=== PATIENT | female | born 1940 | race Caucasian/White ===

== ENCOUNTER → 2017-09-16 | Day surgery (SDC) | payer OTHER ==
--- NOTE | 2017-09-13 12:28 | Diagnostic Imaging Report ---
PROCEDURE: Frontal and lateral views of the chest. COMPARISON: Chest 2 views 10/21/2015. INDICATIONS: PREOPERATIVE CHEST XRAY FOR RIGHT HAND SURGERY FINDINGS: Lines/tubes: None. Lungs: The lungs are well inflated and clear. There is no evidence of pneumonia or pulmonary edema. Pleura: There is no pleural effusion or pneumothorax. Heart and mediastinum: The heart and the mediastinum are normal. Bones: No acute bony abnormality. Degenerative changes of the thoracic spine. IMPRESSION: No acute radiographic abnormality. Dictated by: Shivam Anderson M.D. on 09/13/2017 at 12:37 Electronically approved by: Shivam Anderson M.D. on 09/13/2017 at 12:37
[2017-09-13 12:38] LABS: BASOPHILS % 0.3 % (0.0-1.0); EOSINOPHILS # (AUTO) 0.2 (0.0-0.4); EOSINOPHILS % 1.4 % (0.0-6.0); HEMATOCRIT 39.2 % (34.2-44.1); LYMPHOCYTES % 15.4 % (18.0-39.1); MEAN CORPUSCULAR HGB CONC 33.2 g/dL (31-35); MEAN CORPUSCULAR VOLUME 93.6 fL (81-99); MONOCYTES # (AUTO) 0.7 (0.2-0.8); MONOCYTES % 5.6 % (4.4-11.3); NEUTROPHILS # (AUTO) 9.8 (2.1-6.9); NEUTROPHILS % 76.6 % (38.7-80.0); PLATELET COUNT 294 x10e3/uL (140-360); RED BLOOD COUNT 4.19 x10e6/uL (3.6-5.1); RED CELL DISTRIBUTION WIDTH 12.5 % (11.7-14.4)
[2017-09-13 12:56] LABS: ANION GAP 18.5 mmol/L (8-16); CALCIUM 10.2 mg/dL (8.4-10.2); CREATININE, SERUM 1.79 mg/dL (0.57-1.11); POTASSIUM 5.5 mmol/L (3.5-5.1)
[~2017-09-16] MED LIST: ASA325 PO; CLINDAMYCIN 600MG/D5W 50ML 50 ML IV ONE; DETROL LA4 MG PO; DEXAMETHASONE SOD PHOS INJ 4 MG/ML VIAL ONE; FENTANYL CITRATE/PF 100MCG/2 ML INJ ONE; GABAPENTIN100 MG PO; GABAPENTIN300 MG PO; KETOROLAC TROMETHAMINE 30 MG/ML VIAL ONE; LIDOCAINE HCL 2% LOCAL INJ 5 ML SDV VIAL INJ ONE; LISINOPRIL-HCT1 EAC2 PO; LISINOPRIL/HCTZ PO; LOVENOX40 MG/0.4 SC; METFORMIN HCL500 MG PO; MIDAZOLAM HCL 2 MG/2 ML VIAL ONE; NORCO 7.5-3251 EACH PO; OMEPRAZOLE40 MG PO; ONDANSETRON HCL INJ 2 MG/ML VIAL ONE; POTASSIUM CHLO10 ME1 PO; POTASSIUM10 MEQ/100 IV; PROPOFOL IV EMULSION 10 MG/ML 20 ML VIAL ONE; SEVOFLURANE INHAL SOLN 250 ML PEN BTL ONE; SKELAXIN800 MG PO; TOLTERODINE TART2 MG PO
[2017-09-16 07:26] LABS: BASOPHILS % 0.4 % (0.0-1.0); EOSINOPHILS # (AUTO) 0.1 (0.0-0.4); EOSINOPHILS % 1.4 % (0.0-6.0); HEMATOCRIT 34.7 % (34.2-44.1); HEMOGLOBIN 11.4 g/dL (12.0-16.0); LYMPHOCYTES # (AUTO) 2.1 (1.0-3.2); LYMPHOCYTES % 26.8 % (18.0-39.1); MEAN CORPUSCULAR HEMOGLOBIN 30.4 pg (28-32); MEAN CORPUSCULAR HGB CONC 32.9 g/dL (31-35); MEAN CORPUSCULAR VOLUME 92.5 fL (81-99); MONOCYTES # (AUTO) 0.5 (0.2-0.8); NEUTROPHILS % 63.9 % (38.7-80.0); PLATELET COUNT 260 x10e3/uL (140-360); RED BLOOD COUNT 3.75 x10e6/uL (3.6-5.1); RED CELL DISTRIBUTION WIDTH 12.4 % (11.7-14.4)
[2017-09-16 07:43] LABS: ANION GAP 15.7 mmol/L (8-16); CALCIUM 9.1 mg/dL (8.4-10.2); CREATININE, SERUM 1.05 mg/dL (0.57-1.11); POTASSIUM 4.7 mmol/L (3.5-5.1)
--- NOTE | 2017-09-16 10:13 | Operative Report ---
DATE OF PROCEDURE: September 16, 2017 SENIOR ECONOMIST: Kenny Agee PA-C The patient was brought to the operating room for induction of anesthesia. Throughout this case, my PA's assistance was necessary for retraction of soft tissue and positioning of the extremity. This allows for efficient and technically successful execution of the operation and is considered medically necessary. PREOPERATIVE DIAGNOSIS: Displaced right 4th and 5th metacarpal fractures. POSTOPERATIVE DIAGNOSIS: Displaced right 4th and 5th metacarpal fractures. PROCEDURE: Closed reduction and percutaneous pinning, right 4th and 5th metacarpals. INDICATIONS: The patient is a 77-year-old lady who has completely displaced right 4th and 5th metacarpal neck fractures. The findings and options have been discussed. We plan on closed reduction and percutaneous pin fixation. The risks and benefits have been explained. She states she understands and wishes to proceed. DESCRIPTION OF PROCEDURE: The patient was brought to the operating room and placed under general anesthetic. Her right upper extremity was prepped and draped in a sterile manner. A preoperative time out was performed. A C-arm image intensifier was used to assist in placing 0.045 K-wire from the metacarpal head into the shaft. This dramatically improved alignment. This was performed on both the 4th and 5th metacarpals. The pins were cut short and capped. A sterile bandage and an ulnar gutter splint were applied after C-arm images confirmed satisfactory reduction and positioning of the hardware. There was no blood loss, and all needle and sponge counts were correct. Job#: [id number]
== END | disposition home or self-care (01) ==
LOC: OR 07:05
PROVIDERS: ATTEND Specialist
DX: S62.334A Displaced fracture of neck of fourth metacarpal bone, right hand, initial encounter for closed fracture (principal); S62.336A Displaced fracture of neck of fifth metacarpal bone, right hand, initial encounter for closed fracture; E11.9 Type 2 diabetes mellitus without complications; I10 Essential (primary) hypertension; W18.49XA Other slipping, tripping and stumbling without falling, initial encounter; Z01.810 Encounter for preprocedural cardiovascular examination; Z01.812 Encounter for preprocedural laboratory examination; Z01.818 Encounter for other preprocedural examination
CPT/HCPCS: 26608 ×2; 36415 ×2; 71046; 80048 ×2; 82948; 85025 ×2; 93005; J1100; J1885; J2001; J2250; J2405; 76000

== ENCOUNTER 2019-07-27 06:27 | Observation (INO) | payer MEDICARE, OTHER ==
[2019-07-24 09:48] LABS: BASOPHILS # (AUTO) 0.1 (0.0-0.1); BASOPHILS % 0.9 % (0.0-1.0); EOSINOPHILS # (AUTO) 0.2 (0.0-0.4); EOSINOPHILS % 2.8 % (0.0-6.0); HEMATOCRIT 34.7 % (34.2-44.1); HEMOGLOBIN 11.5 g/dL (12.0-16.0); LYMPHOCYTES # (AUTO) 1.7 (1.0-3.2); LYMPHOCYTES % 29.4 % (18.0-39.1); MEAN CORPUSCULAR HEMOGLOBIN 30.7 pg (28-32); MEAN CORPUSCULAR HGB CONC 33.1 g/dL (31-35); MEAN CORPUSCULAR VOLUME 92.5 fL (81-99); MONOCYTES # (AUTO) 0.4 (0.2-0.8); MONOCYTES % 7.8 % (4.4-11.3); NEUTROPHILS # (AUTO) 3.3 (2.1-6.9); NEUTROPHILS % 58.7 % (38.7-80.0); PLATELET COUNT 235 x10e3/uL (140-360); RED BLOOD COUNT 3.75 x10e6/uL (3.6-5.1); RED CELL DISTRIBUTION WIDTH 12.8 % (11.7-14.4)
[2019-07-24 10:04] LABS: ANION GAP 14.5 mmol/L (8-16); CREATININE, SERUM 1.05 mg/dL (0.57-1.11); POTASSIUM 4.5 mmol/L (3.5-5.1)
--- NOTE | 2019-07-24 10:04 | Diagnostic Imaging Report ---
EXAMINATION: CHEST 2 VIEWS INDICATION: Pre-admit. COMPARISON: None FINDINGS: TUBES and LINES: None. LUNGS: Lungs are well inflated. Mild patchy bibasilar opacities, likely atelectasis. There is no evidence of pneumonia or pulmonary edema. PLEURA: No pleural effusion or pneumothorax. HEART AND MEDIASTINUM: The cardiomediastinal silhouette is unremarkable. BONES AND SOFT TISSUES: No acute osseous abnormality. Degenerative changes of the bilateral shoulders and visualized spine. UPPER ABDOMEN: No free air under the diaphragm. IMPRESSION: No acute radiographic abnormality. Signed by: Dr. Stacey Luna MD on 07/24/2019 10:01 AM
[2019-07-27] VITALS (7 sets, daily range): BP systolic 114–142; BP diastolic 52–80
[~2019-07-27] VITALS: Ht 170.2 cm; Wt 61.4 kg
[~2019-07-27 06:27] MED LIST changes: -CLINDAMYCIN 600MG/D5W 50ML 50 ML IV ONE; -DEXAMETHASONE SOD PHOS INJ 4 MG/ML VIAL ONE; -FENTANYL CITRATE/PF 100MCG/2 ML INJ ONE; -KETOROLAC TROMETHAMINE 30 MG/ML VIAL ONE; -LIDOCAINE HCL 2% LOCAL INJ 5 ML SDV VIAL INJ ONE; -MIDAZOLAM HCL 2 MG/2 ML VIAL ONE; -ONDANSETRON HCL INJ 2 MG/ML VIAL ONE; -PROPOFOL IV EMULSION 10 MG/ML 20 ML VIAL ONE; -SEVOFLURANE INHAL SOLN 250 ML PEN BTL ONE; +vit d2 PO
--- OUTSIDE RECORDS SUMMARY | 2019-07-27 06:30 | XMS REPORT ---
Author Author [facility] Address Unknown Phone Unavailable Care Team Providers Care Edge Banding Off Bearer Name Role Phone KAIT VENTURA Unavailable Unavailable Problems This patient has no known problems. Allergies, Adverse Reactions, Alerts This patient has no known allergies or adverse reactions. Medications This patient has no known medications. Results Test Description Test Time Test Comments Text Results Atomic Results Result Comments CHEST 2 VIEWS 2019-07-24 09:59:00 [place] [address] Patient Name: KG ROTH MR #: [id number] : 1940 Age/Sex: 78/F Req #: [id number] Adm Physician: Ordered by: KAIT VENTURA MD Report #: [id number] Location: OR Room/Bed: Procedure: [id number] DX/CHEST 2 VIEWS Exam Date: 07/24/19 Exam Time: 919 REPORT STATUS: Signed EXAMINATION: CHEST 2 VIEWS INDICATION: Pre-admit. COMPARISON: None FINDINGS: TUBES and LINES: None. LUNGS: Lungs are well inflated. Mild patchy bibasilar opacities, likely atelectasis. There is no evidence of pneumonia or pulmonary edema. PLEURA: No pleural effusion or pneumothorax. HEART AND MEDIASTINUM: The cardiomediastinal silhouette is unremarkable. BONES AND SOFT TISSUES: No acute osseous a bnormality. Degenerative changes of the bilateral shoulders and visualized spine. UPPER ABDOMEN: No free air under the diaphragm. IMPRESSION: No acute radiographic abnormality. Signed by: Dr. Nettie Oconnor MD on 07/24/2019 10:01 AM Dictated By: NETTIE OCONNOR MD [id number] Transcribed By: SEAN on 07/24/19 1001 COPY TO: KAIT VENTURA MD SCR MAMM BILATERAL ROLO CAD DIGITAL 2019-02-25 08:20:20 - SCR MAMM BILATERAL ROLO CAD DIGITALBILATERAL DIGITAL SCREENING MAMMOGRAM 3D/2D WITH CAD: 02/25/2019CLINICAL: Asymptomatic. Digital breast tomosynthesis was performed in addition to routine CC and MLO views. Current mammographic images were evaluated by either a [employer] M-Vu or a [employer] ImageChecker CAD (computer aided detection system). Comparison is made to exams dated 01/29/2018 mammogram, 01/28 mammogram, and 01/18/2016 mammogram - [facility]-. The tissue of both breasts is heterogeneously dense. This may lower the sensitivity of mammography. There are benign appearing calcifications in both breasts. There also is a biopsy clip in the left breast. No suspicious mass, architectural distortion, malignant type calcification, or lymph node abnormality detected. Breast architecture is stable compared to prior exams.IMPRESSION: BENIGNThere is no mammographic evidence of malignancy. Resume annual screening mammography in one year. Luisito Mora M.D. ss/penrad:02/25/2019 08:20:20 Hide Measuring Machine Operator: Fiordaliza CORREIA, [facility]-FWletter sent: BIRADS 1-2 Normal Mammogram BI-RADS: 2 Benign CHEST 2 VIEWS [place] [address] Patient Name: KG ROTH MR #: [id number] : 1940 Age/Sex: 77/F Req #: [id number] Adm Physician: Ordered by: KAIT VENTURA MD Report #: [id number] Location: OR Room/Bed: Procedure: [id number] DX/CHEST 2 VIEWS Exam Date: 09/13/17 Exam Time: 1200 REPORT STATUS: Signed PROCEDURE: Frontal and lateral views of the chest. COMPARISON: Chest 2 views 10/21/2015. INDICATIONS: PREOPERATIVE CHEST XRAY FOR RIGHT HAND SURGERY FINDINGS: Lines/tubes: None. Lungs: The lungs are well inflated and clear. There is no evidence of pneumonia or pulmonary edema. Pleura: There is no pleural effusion or pneumothorax. Heart and mediastinum: The heart and the mediastinum are normal. Bones: No acute bony abnormality. Degenerative changes of the thoracic spine. IMPRESSION: No acute radiographic abnormality. Dictated by: Christiano Bill M.D. on 09/13/2017 at 12:37 Electronically approved by: Christiano Bill M.D. on 09/13/2017 at 12:37 Dictated By: CHRISTIANO BILL MD [id number] Transcribed By: MARTHA on 09/13/17 1237 COPY TO: KAIT VENTURA MD
[2019-07-27] MEDS ORDERED: GABAPENTIN 300 MG CAP ONE (06:57)
[2019-07-27] MEDS ORDERED: DEXAMETHASONE SOD PHOS 10 MG/1 ML VIAL ONE (06:57)
[2019-07-27] MEDS ORDERED: CELECOXIB 200 MG CAP ONE (06:57)
[2019-07-27] MEDS ORDERED: VANCOMYCIN 1GM/NS 250 ML 250 ML ONE (06:58)
[2019-07-27] MEDS ORDERED: VANCOMYCIN HCL 1,000 MG ONE (07:33)
[2019-07-27] MEDS ORDERED: TRANEXAMIC ACID 1,000 MG/10 ML ML ONE (07:33)
[2019-07-27] MEDS ORDERED: SODIUM CHLORIDE 0.9% 500ML 500 ML ONE (07:33)
[2019-07-27] MEDS ORDERED: BACITRACIN 50,000 UNIT VIAL ONE (07:34)
[2019-07-27] MEDS ORDERED: ROPIVACAINE 246.25 MG, EPINEPHRINE HCL 1:1000 1ML 0.5 MG, CLONIDINE HCL 0.08 MG, KETORO... INJ ONE ×5 (08:00)
[2019-07-27] MEDS ORDERED: ACETAMINOPHEN 1000 MG/100 ML 100 ML IV ONE (08:34)
[2019-07-27] MEDS ORDERED: TRAMADOL HCL 50 MG TAB PO PRN (09:30)
[2019-07-27] MEDS ORDERED: DIPHENHYDRAMINE HCL INJ 50 MG/ML VIAL IM/IV PRN (09:30)
[2019-07-27] MEDS ORDERED: DOCUSATE SODIUM 100 MG CAP PO PRN (09:30)
[2019-07-27] MEDS ORDERED: KETOROLAC TROMETHAMINE 30 MG/ML VIAL IV PRN (09:30)
[2019-07-27] MEDS ORDERED: ACETAMINOPHEN 650 MG SUPP PR PRN (09:30)
[2019-07-27] MEDS ORDERED: ONDANSETRON HCL INJ 2MG/ML 2ML 2 MG/ML VIAL IV PRN (09:30)
[2019-07-27] MEDS ORDERED: PROMETHAZINE HCL (IM) 25 MG/ML VIAL IM PRN (09:30)
--- NOTE | 2019-07-27 10:03 | Diagnostic Imaging Report ---
Right knee, 2 views Clinical indications: Postop knee replacement Comparison: None Findings: Patient is status post cemented right total knee arthroplasty. There is no evidence of periprosthetic fracture. Alignment is anatomic. Impression: Status post right total knee arthroplasty. Alignment anatomic. Signed by: Jameel Webb MD on 07/27/2019 10:00 AM
[2019-07-27] MEDS ORDERED: HYDROMORPHONE 2MG/ML 2 MG/ML ML ONE (10:06)
--- NOTE | 2019-07-27 10:40 | NUR ---
Pt arrived via stretcher with 2 person assist. A&O x3, resp WNL NC at 2L. R knee in mariposa wrap kept in straight position. Foot pumps on at this time. IV patent, fluids being administered. Call light within reach, bed in lowest position and locked.
[2019-07-27] MEDS: SODIUM CHLORIDE 0.9% 1000ML 1,000 ML IV SCH ×2 (12:13→19:29)
--- NOTE | 2019-07-27 12:24 | Operative Report ---
DATE OF PROCEDURE: 07/27/2019 SURGEON: Chriss Dunlap MD CARDIAC REHABILITATION SPECIALIST: Kenny Agee, certified PA. PREOPERATIVE DIAGNOSIS: Osteoarthritis of right knee. POSTOPERATIVE DIAGNOSIS: Osteoarthritis of right knee. PROCEDURE: Right total knee arthroplasty. INDICATIONS: The patient is a 78-year-old lady, who has end-stage arthritis in her right knee. She has failed conservative management and would like to proceed with a right total knee replacement. The risks and benefits of the procedure have been discussed. She states she understands and wishes to proceed. PROCEDURE IN DETAIL: The patient was brought to the operating room and placed under general anesthetic. She received prophylactic antibiotics, a regional block and tranexamic acid in the holding area. Her right lower extremity was prepped and draped in a sterile manner. A preoperative time-out was performed. The extremity was exsanguinated and a proximal tourniquet was inflated to 300 mmHg. An anterior approach with a medial parapatellar arthrotomy was performed. Clear synovial fluid was removed from the joint. Soft tissue releases were performed to bring the knee up into flexion with the patella everted. Meniscal remnants and the cruciate ligaments were sacrificed. A Kovacs and NephMIG [place] knee system were used throughout the case. An extramedullary cutting guide was used to resect the proximal tibia. The tibial base plate was a size #3. The central fin punch was impacted and attention was directed towards the distal femur. An intramedullary cutting guide was used to resect the distal femur in 6 degrees of valgus and rotation referencing off a combination of landmarks including Whitesides line, the epicondylar axis, and the posterior condyles. The femoral component was a size #4, it was between #4 and #5 and I shifted the block 2 mm anterior to accommodate a #4. The anterior and posterior cuts were made. Trial reductions were performed. A 9 mm ultracongruent tibial insert provided appropriate soft tissue balancing in full extension and 90 degrees of flexion. The patella was inspected. There was severe lateral wear. The lateral facet was only 11 mm thick. The patella was resurfaced with a 26 mm x 7.5 mm patellar button. I cheated medially to accommodate the best bone. Patellar tracking was concentric. The trial implants were then all removed. A 100 mL premixed pericapsular SUZIE injection was then placed into the surrounding soft tissue. The knee was thoroughly irrigated with a shower tip pulsatile lavage. All bone cuts had been irrigated with a spray mixture of diluted vancomycin and polymyxin spray. The components were cemented into place using a single mix of high viscosity Biomet cement preloaded with antibiotics. Care was taken to remove all extravasated cement. The wound was further irrigated while the cement cured. The wound was closed after sprinkling in 500 mg of vancomycin powder. The arthrotomy was closed with interrupted #1 Ethibond. The knee was put through flexion and extension to ensure a secure closure. The skin was closed with subcuticular Vicryl and gisele. A sterile bandage was applied. A sterile Aquacel bandage and an Carlos wrap were applied. The patient was extubated and transported to the recovery room in stable condition. Blood loss was minimal. All needle and sponge counts were correct. Chriss Dunlap MD DR/KAVON /[id number]
--- NOTE | 2019-07-27 12:34 | NUR ---
Spoke with pt regarding allergies to acetaminophen and aspirin. Pt stated "I'm okay with taking tylenol." "When I take aspirin by mouth is caused me to have bleeding ulcer and then I had to receive 5 units of blood, but I can take it IV." Nurse informed information to pharmacy pertaining to allergies.
[2019-07-27] MEDS: ACETAMINOPHEN 1000 MG/100 ML IV SCH ×3 (13:01→23:27)
--- NOTE | 2019-07-27 13:37 | NUR ---
IV acetaminophen finished administering at this time. Pt tolerated well. Resp WNL. Will continue to monitor.
[2019-07-27] MEDS ORDERED: CELECOXIB 100 MG CAP PO SCH (17:00)
[2019-07-27] MEDS ORDERED: PROPOFOL IV EMULSION 10 MG/ML 20 ML VIAL ONE (17:44)
[2019-07-27] MEDS ORDERED: DEXAMETHASONE SOD PHOS INJ 4 MG/ML VIAL ONE (17:44)
[2019-07-27] MEDS ORDERED: LIDOCAINE HCL 2% LOCAL INJ 5 ML SDV VIAL INJ ONE (17:44)
[2019-07-27] MEDS ORDERED: SEVOFLURANE INHAL SOLN 250 ML PEN BTL ONE (17:44)
[2019-07-27] MEDS ORDERED: ROCURONIUM BROMIDE 10 MG/ML 5ML VIAL ONE (17:44)
[2019-07-27] MEDS ORDERED: PHENYLEPHRINE HCL 1% 10 MG/ML VIAL ONE (17:44)
[2019-07-27] MEDS ORDERED: ONDANSETRON HCL INJ 2MG/ML 2ML 2 MG/ML VIAL ONE (17:44)
[2019-07-27] MEDS ORDERED: METOCLOPRAMIDE HCL 10 MG/2ML VIAL ONE (17:44)
[2019-07-27] MEDS ORDERED: ENOXAPARIN SOD INJ 40 MG/0.4 ML SYR SC SCH (18:00)
[2019-07-27] MEDS ORDERED: MIDAZOLAM HCL 2 MG/2 ML VIAL ONE (18:03)
[2019-07-27] MEDS ORDERED: FENTANYL CITRATE/PF 100MCG/2 ML INJ ONE (18:03)
[2019-07-27] MEDS: CELECOXIB 200 MG CAP PO SCH (18:21)
[2019-07-27] MEDS: VANCOMYCIN 1GM/NS 250 ML 250 ML IV SCH (20:19)
[2019-07-27] MEDS ORDERED: ZOLPIDEM TARTRATE 5 MG TAB PO PRN (21:00)
--- NOTE | 2019-07-27 22:50 | NUR ---
Patient refused CPM.
[2019-07-28] VITALS: BP 129/81
[2019-07-28] MEDS: SODIUM CHLORIDE 0.9% 1000ML 1,000 ML IV SCH (02:04)
[2019-07-28 04:00] VITALS: BP 111/65
[2019-07-28] MEDS: ACETAMINOPHEN 1000 MG/100 ML IV SCH (05:49)
[2019-07-28 06:24] LABS: HEMOGLOBIN 9.9 g/dL (12.0-16.0)
--- NOTE | 2019-07-28 07:00 | NUR ---
BEDSIDE ROUNDS COMPLETE NO DISTRESS NOTED, UPDATED ON POC VOICED UNDERSTANDING, DENIES PAIN AT THIS TIME CALL LIGHT INR EACH WILL CONTINUE TO MONITOR
[2019-07-28 08:06] VITALS: BP 109/62
[2019-07-28] MEDS ORDERED: DEXTROSE 50% SYRINGE 50 ML IV PRN (08:15)
[2019-07-28 08:21] VITALS: BP 109/62
[2019-07-28] MEDS ORDERED: GABAPENTIN 300 MG CAP PO SCH (09:00)
[2019-07-28] MEDS: VANCOMYCIN 1GM/NS 250 ML 250 ML IV SCH (09:20)
[2019-07-28] MEDS ORDERED: ACETAMINOPHEN 1000 MG/100 ML IV PRN (09:30)
[2019-07-28] MEDS: CELECOXIB 200 MG CAP PO SCH (09:30)
[2019-07-28] MEDS ORDERED: TRAMADOL HCL 50 MG TAB PO PRN (09:30)
[2019-07-28] MEDS ORDERED: TRAMADOL HCL 50 MG TAB PO ONE (10:00)
[2019-07-28] MEDS ORDERED: PANTOPRAZOLE SOD 40 MG TABEC PO SCH (10:00)
[2019-07-28] MEDS ORDERED: METFORMIN HCL 500 MG TAB PO SCH (10:00)
[2019-07-28] MEDS ORDERED: TOLTERODINE TARTRATE 4 MG CAPCR PO SCH (10:00)
--- NOTE | 2019-07-28 11:10 | NUR ---
Received order for home health and dme. Spoke to Naomi with therapy supply [facility], gave her updated phone number ihsan Zendejas () [phone]. Patient states she already has a walker and 3:1 from her hip surgery, notified TSH they will bring CPM and knee brace 07/29 btwn 1-5. Spoke with [facility], they have Ms Sears down to see patient tomorrow. Gave patient cm's card and info about companies
--- NOTE | 2019-07-28 11:25 | NUR ---
EDIN explained to patient, patient signed, copy to patient, copy to chart
[2019-07-28] MEDS ORDERED: INSULIN LISPRO 100 UNIT/1 ML 3ML VIAL SQ SCH (11:30)
[2019-07-28 11:33] VITALS: BP 138/79
--- NOTE | 2019-07-28 11:47 | Consultation ---
DATE OF CONSULTATION: 07/28/2019 CHIEF COMPLAINT: Status post right knee replacement, diabetes type 2, hypertension, and osteoarthritis. SUMMARY: The patient is a 78-year-old female, status post right knee replacement. The patient is otherwise stable. Blood sugar is slightly elevated. The patient is comfortable. No chest pain. No shortness of breath. PAST MEDICAL HISTORY: Diabetes type 2, hypertension, history of gastric reflux, and osteoarthritis. PAST SURGICAL HISTORY: Bilateral hip replacement, left knee surgery, and cholecystectomy. SOCIAL HISTORY: The patient does not smoke or use alcohol. No regular drugs. ALLERGIES: TO DYE, HYDROCODONE, SULFA, ACETAMINOPHEN, AMOXICILLIN, ASPIRIN, CIPRO, CLARITHROMYCIN, IBUPROFEN, MORPHINE, PREDNISONE, AND BACTRIM. PHYSICAL EXAMINATION: VITAL SIGNS: Temperature is 98, blood pressure 109/62, pulse rate 80, and respirations 18. GENERAL: The patient is not in acute distress. HEENT: Normocephalic and atraumatic. Anicteric. NECK: Supple grossly. PULMONARY: Clear. CARDIOVASCULAR: Regular rate and rhythm. ABDOMEN: Soft. Unremarkable. EXTREMITIES: No cyanosis or edema. Right knee replacement. NEUROLOGIC: No focal deficit. LABORATORY DATA: Hemoglobin and hematocrit are 9.9 and 30. Chemistry; blood sugar is 126. IMPRESSION: 1. Status post right knee replacement, stable. 2. Baseline diabetes type 2, hypertension, osteoarthritis, and overactive urinary bladder. PLAN: Resume home medication. Pain control and physical therapy. Insulin sliding scale coverage. Discontinue IV fluids. Discontinue Toradol. The patient is otherwise stable. Thank you, Dr. Dunlap, for this consultation. We will follow with the patient and adjust medication accordingly. MD MELISA Alva/MODL /[id number]
[2019-07-28] MEDS ORDERED: LOVENOX40 MG/0.4 SC (12:48)
--- NOTE | 2019-07-28 13:50 | NUR ---
PT EDUCATED AND DEMONSTRATED BACK LOVENOX INJECTION ADMINISTRATION. PT AND PROVIDE WITH WRITTEN EDUCATION OF LOVENOX AND ADMINISTRATION SITES. ALL QUESTIONS ANSWERED, NO FURTHER CONCERNS NOTED
== END 2019-07-28 14:08 | disposition home health service (06) ==
LOC: OR 06:27 → PACU V 09:33 → MED/SURG 10:30
PROVIDERS: ADMIT Specialist; ATTEND Specialist
DX: M17.11 Unilateral primary osteoarthritis, right knee (principal); E11.42 Type 2 diabetes mellitus with diabetic polyneuropathy; K21.9 Gastro-esophageal reflux disease without esophagitis; I10 Essential (primary) hypertension; N32.81 Overactive bladder; Z88.6 Allergy status to analgesic agent; Z88.1 Allergy status to other antibiotic agents; Z88.5 Allergy status to narcotic agent; Z88.2 Allergy status to sulfonamides; Z88.8 Allergy status to other drugs, medicaments and biological substances; Z91.048 Other nonmedicinal substance allergy status; Z96.643 Presence of artificial hip joint, bilateral; Z90.49 Acquired absence of other specified parts of digestive tract; K25.9 Gastric ulcer, unspecified as acute or chronic, without hemorrhage or perforation; Z83.3 Family history of diabetes mellitus; Z82.49 Family history of ischemic heart disease and other diseases of the circulatory system; Z79.84 Long term (current) use of oral hypoglycemic drugs; Z01.812 Encounter for preprocedural laboratory examination; Z01.811 Encounter for preprocedural respiratory examination
CPT/HCPCS: 27447; 36415 ×3; 71046; 73560; 80048; 82948 ×2; 85014; 85018; 85025; 86850; 86900; 86920; 97110; 97116 ×2; 97139; 97161; 97530 ×2; C1713; G0378 ×2; J0131 ×2; J0171; J1100 ×2; J1170; J1650 ×2; J1885; J2001; J2250; J2370; J2405; J2704; J2765; J2795; J3010; J3370 ×3; J7030; J7040; S0164

== ENCOUNTER 2021-06-12 05:39 | Observation (INO) | payer MEDICARE ==
[2021-06-09 10:23] LABS: BASOPHILS # (AUTO) 0.1 (0.0-0.1); BASOPHILS % 0.8 % (0.0-1.0); EOSINOPHILS # (AUTO) 0.3 (0.0-0.4); EOSINOPHILS % 4.8 % (0.0-6.0); HEMATOCRIT 36.2 % (34.2-44.1); HEMOGLOBIN 11.5 g/dL (12.0-16.0); LYMPHOCYTES # (AUTO) 1.8 (1.0-3.2); LYMPHOCYTES % 30.7 % (18.0-39.1); MEAN CORPUSCULAR HEMOGLOBIN 30.3 pg (28-32); MEAN CORPUSCULAR HGB CONC 31.8 g/dL (31-35); MEAN CORPUSCULAR VOLUME 95.5 fL (81-99); MONOCYTES # (AUTO) 0.5 (0.2-0.8); NEUTROPHILS # (AUTO) 3.3 (2.1-6.9); NEUTROPHILS % 54.2 % (38.7-80.0); PLATELET COUNT 187 x10e3/uL (140-360); RED BLOOD COUNT 3.79 x10e6/uL (3.6-5.1); RED CELL DISTRIBUTION WIDTH 13.1 % (11.7-14.4)
[2021-06-09 10:50] LABS: ANION GAP 13.3 mmol/L (8-16); CALCIUM 9.9 mg/dL (8.4-10.2); CREATININE, SERUM 1.29 mg/dL (0.57-1.11); POTASSIUM 5.3 mmol/L (3.5-5.1)
[~2021-06-12] VITALS: Ht 170.2 cm; Wt 70.8 kg
[2021-06-12] MEDS ORDERED: TRANEXAMIC ACID 1,000 MG/10 ML ML ONE (06:08)
[2021-06-12] MEDS ORDERED: SODIUM CHLORIDE 0.9% 500ML 500 ML ONE (06:08)
[2021-06-12] MEDS ORDERED: Vancomycin IV 1,000 MG ONE (06:08)
[2021-06-12] MEDS ORDERED: CELECOXIB 200 MG CAP ONE (06:30)
[2021-06-12] MEDS ORDERED: DEXAMETHASONE SOD PHOS 10 MG/1 ML VIAL ONE (06:30)
[2021-06-12] MEDS ORDERED: GABAPENTIN 300 MG CAP ONE (06:30)
[2021-06-12] MEDS ORDERED: ROPIVACAINE 246.25 MG, EPINEPHRINE HCL 1:1000 1ML 0.5 MG, CLONIDINE HCL 0.08 MG in SODI... INJ ONE (06:30)
[2021-06-12] MEDS ORDERED: Vancomycin IV 1 GM VIAL ONE (06:31)
[2021-06-12] MEDS ORDERED: SODIUM CHLORIDE 0.9% 250ML 250 ML ONE (06:31)
[2021-06-12] MEDS ORDERED: ACETAMINOPHEN 650 MG SUPP PR PRN (08:15)
[2021-06-12] MEDS ORDERED: KETOROLAC TROMETHAMINE 30 MG/ML VIAL IV PRN (08:15)
[2021-06-12] MEDS ORDERED: DOCUSATE SODIUM 100 MG CAP PO PRN (08:15)
[2021-06-12] MEDS ORDERED: ZOLPIDEM TARTRATE 5 MG TAB PO PRN (08:15)
[2021-06-12] MEDS ORDERED: DIPHENHYDRAMINE HCL INJ 50 MG/ML VIAL IV PRN (08:15)
[2021-06-12] MEDS ORDERED: ONDANSETRON HCL INJ 2MG/ML 2ML 2 MG/ML VIAL IV PRN (08:15)
[2021-06-12] MEDS ORDERED: FENTANYL CITRATE/PF 100MCG/2 ML INJ ONE (08:47)
[2021-06-12] MEDS ORDERED: ASPIRIN 325 MG TAB PO SCH (09:00)
[2021-06-12] MEDS ORDERED: SODIUM CHLORIDE 0.9% 1000ML 1,000 ML IV SCH (09:30)
[2021-06-12 09:36] VITALS: BP 144/64
[2021-06-12 09:43] VITALS: BP 144/64
[2021-06-12 10:55] VITALS: BP_SYST 68
[2021-06-12 15:02] VITALS: BP 118/68
[2021-06-12] MEDS ORDERED: DEXTROSE 50% SYRINGE 50 ML IV PRN (15:15)
[2021-06-12] MEDS ORDERED: INSULIN LISPRO 100 UNIT/1 ML 3ML VIAL SQ SCH (16:30)
[2021-06-12] MEDS ORDERED: CELECOXIB 200 MG CAP PO SCH (17:00)
[2021-06-12] MEDS ORDERED: Vancomycin IV 1 GM in SODIUM CHLORIDE 0.9% 250ML 250 ML IV SCH (18:00)
[2021-06-13] MEDS ORDERED: ACETAMINOPHEN 1000 MG/100 ML IV PRN (08:15)
== END 2021-06-12 18:18 | disposition home or self-care (01) ==
LOC: OR 05:39 → PACU V 08:06 → MED/SURG 08:54
PROVIDERS: ADMIT Specialist; ATTEND Specialist
DX: M17.0 Bilateral primary osteoarthritis of knee (principal); M16.0 Bilateral primary osteoarthritis of hip; Z96.651 Presence of right artificial knee joint; Z96.643 Presence of artificial hip joint, bilateral; E11.9 Type 2 diabetes mellitus without complications; I10 Essential (primary) hypertension; Z20.822 Contact with and (suspected) exposure to COVID-19
CPT/HCPCS: 27447; 36415 ×2; 71046; 73560; 80048; 82948; 85025; 86850; 86900; 86920 ×2; 93005; 97116; 97162; 97530; C1713; G0378; J0171; J1100; J1885; J2795; J3010; J3370 ×2; J7040; J7050; U0002